=== PATIENT | female | born 1950 | race Asian ===

== ENCOUNTER 2017-01-03 07:11 | Day surgery (SDC) | payer OTHER ==
[~2017-01-03] VITALS: Ht 157.5 cm; Wt 90.0 kg
[2017-01-03] MEDS ORDERED: METO-429 PO (07:58)
[2017-01-03] MEDS ORDERED: CLON-379 PO (07:58)
[2017-01-03] MEDS ORDERED: CIPR500T4 PO (07:59)
[2017-01-03] MEDS ORDERED: PANT40TA3 PO (07:59)
[2017-01-03] MEDS ORDERED: SOD CHLORIDE 0.9% 1,000 ML IV SCH (08:00)
[2017-01-03] MEDS ORDERED: LORA-186 PO (08:00)
[2017-01-03] MEDS ORDERED: CEFAZOLIN 1 GM/50 ML (PMX) 50 ML IVPB ONE ×2 (08:00→09:45)
[2017-01-03] MEDS ORDERED: LIDOCAINE 2%/EPI 30 ML INJ ONE (08:24)
[2017-01-03] MEDS ORDERED: HEPARIN 1000 UNITS/ML 10 ML INJ ONE (08:24)
[2017-01-03] MEDS ORDERED: SOD CHLORIDE 0.9% 500 ML ONE ×2 (08:24→11:13)
[2017-01-03] MEDS ORDERED: POLYMYXIN/BACITRACIN 1L IRRIG IRR ONE (08:30)
[2017-01-03 08:41] VITALS: Ht 157.5 cm; Wt 90.0 kg
[2017-01-03 08:45] VITALS: BP 175/77; PULSE 97; RESP 16
[2017-01-03] MEDS ORDERED: FENTAnyl 50 MCG/ML VIAL ONE (09:45)
[2017-01-03] MEDS ORDERED: MIDAZOLAM 1 MG/ML 2 ML INJ ONE (09:46)
--- NOTE | 2017-01-03 10:59 | RADRPT ---
PROCEDURE: FLUOROSCOPIC AND ULTRASONOGRAPHIC-GUIDED PLACEMENT OF RIGHT CHEST PORT. CLINICAL INDICATION: History of left breast cancer. Venous access for chemotherapy. TECHNIQUE: INTRAPROCEDURE MEDICATIONS: PB antibiotic solution 40 cc applied topically. 1 gram Ancef intravenous ly, intra-op. IV Versed and Fentanyl per protocol. Informed consent was obtained. The procedure, risks, benefits, complications and alternatives were explained to the patient. Risks including bleeding, infection, and pneumothorax were explained. The patient understood and was willing to proceed. A procedural pause was performed. The patient's name , date of , and procedure to be performed were verified. The central line was inserted with al l elements of maximal sterile barrier technique. All of the following were used: head covering, faci al mask, sterile gown, sterile gloves, a large sterile sheet, hand hygiene, and 2% chlorhexidine fo r cutaneous antisepsis. The right neck and anterior/superior chest wall were prepped and draped in usual sterile fashion. Limited sonography of the right neck was then performed. Noted is a patent right internal jugular ve in. Following the local injection of 1% lidocaine, the right internal jugular vein was punctured under s onographic guidance with a 20-gauge needle through which a 0.018 inch floppy tip guidewire was advan nilda into the superior vena cava with fluoroscopic guidance. The tract was dilated to 5 Russian and the wire was then replaced with a 0.035 in Amplatz guidewire. Serial dilatation was then performed and a 7 Russian peel away sheath was introduced. A site just inferior to the clavicle in the superior anterior right chest wall was localized. One pe rcent lidocaine was used as local anesthesia. A transverse 2.5 cm incision was made utilizing a 15 b lade scalpel. Utilizing blunt dissection a subcutaneous pocket was created inferior to the incision. The cavity was flushed with approximately 40 cc of PB antibiotic solution. The catheter was tunneled underneath the skin from the newly created pocket to the puncture site in the neck. The central line catheter was pulled through the tract. The catheter was then advanced thr ough the sheath until the tip was positioned in the right atrium. The peel-away sheath was removed. The catheter was flushed and clamped. The 6.6 Russian catheter was then connected to the Angiodynamics power port. The port was then placed into the pocket. Prior to closing the instrument and sponge count was verified and was correct. The subcutaneous tissue was closed with 3-0 Vicryl interrupted suture. The skin at the site of the pock et and in the neck was closed with 4-0 Vicryl suture in a running subcuticular technique. The port w as flushed with 1500 units of heparin in 1.5 cc utilizing a Doty needle. The needle was removed. A dressing was applied. The patient tolerated procedure well. COMPARISON: None. FINDINGS: Ultrasound images were recorded and stored in the patient's medical record. Final radiographic images demonstrate the tip of the catheter in the upper right atrium. A total of 0.1 minutes of fluoroscopy time was used. 5 images of the chest were obtained with the Numerify. The ultrasound images demonstrate the needle entering the internal jugular vein. IMPRESSION: 1. Successful ultrasonographic and fluoroscopic guided placement of right chest power port. RPTAT: QQ .Daniel Cazares MD, Date Time Electronically viewed and signed by .Daniel Cazares MD, on 01/03/2017 10:58 .R/
[2017-01-03] MEDS ORDERED: HYDROCODONE/APAP (5/325) TAB PO PRN (11:00)
[2017-01-03 11:02] VITALS: BP 159/81; PULSE 94; RESP 18
[2017-01-03 11:07] VITALS: BP 163/79; PULSE 96; RESP 16
[2017-01-03 13:00] VITALS: BP 155/74; PULSE 97; RESP 16
--- NOTE | 2017-01-03 14:37 | RADRPT ---
PROCEDURE: Ultrasound guidance for placement of needle in right internal jugular vein. CLINICAL INDICATION: Venous access. TECHNIQUE: Prior to the procedure, informed consent was obtained. Risks including bleeding, infection, and pneu mothorax were explained to the patient. The patient understood and was willing to proceed. A procedu ral pause was performed. The patient's name, date of , and procedure to be performed were verif ied. The central line was inserted with all elements of maximal sterile barrier technique. All of th e following were used: head covering, facial mask, sterile gown, sterile gloves, a large sterile she et, hand hygiene, and 2% chlorhexidine for cutaneous antisepsis. The right neck and anterior/super ior chest wall was prepped and draped in usual sterile fashion. Limited sonography of the right neck was then performed. Noted is a patent right internal jugular ve in. Ultrasound images were recorded and stored in the patient's medical record. Following the local injection of Xylocaine, the right internal jugular vein was punctured under sono graphic guidance with a 20-gauge needle through which a 0.018 inch floppy tip guidewire was advanced into the superior vena cava. The patient tolerated the procedure well. The remainder of the proce dure was performed and dictated under separate cover. COMPARISON: None. FINDINGS: The ultrasound images demonstrate a patent right internal jugular vein. The subsequent images demon strate the needle entering the right internal jugular vein. IMPRESSION: 1. Ultrasound guidance for a needle placement in right internal jugular vein. RPTAT: QQ .Daniel Cazares MD, Date Time Electronically viewed and signed by .Daniel Cazares MD, on 01/03/2017 14:37 .R/
== END 2017-01-03 13:11 | disposition home or self-care (01) ==
LOC: SDS 07:11
PROVIDERS: ATTEND Internal Medicine Hematology & Oncology
DX: C50.912 Malignant neoplasm of unspecified site of left female breast (principal)
CPT/HCPCS: 36561; 76942; C1788; J0690; J1644; J2250; J3010; J7040

== ENCOUNTER 2017-04-02 11:21 | Inpatient (IN) | payer OTHER ==
[~2017-04-02] VITALS: Ht 157.5 cm; Wt 86.5 kg
[~2017-04-02 11:21] MED LIST: CIPR500T4 PO; CLON-379 PO; LORA-186 PO; METO-429 PO; PANT40TA3 PO
[2017-04-02 11:27] VITALS: Ht 157.5 cm; Wt 86.5 kg
[2017-04-02] MEDS ORDERED: ONDANSETRON 4 MG INJ IV STA (13:35)
[2017-04-02] MEDS ORDERED: SODIUM CHLORIDE 0.9% 1L BAG IV* STA (13:35)
[2017-04-02 14:11] LABS: ABNORMAL IP MESSAGE 1; BASOPHILS % 0.8 % (0.0-2.0); HEMATOCRIT 37.7 % (37.0-47.0); HEMOGLOBIN 12.4 g/dl (12.0-16.0); LYMPHOCYTES # 1.4 10^3/ul (0.8-2.9); MEAN CORPUSCULAR HEMOGLOBIN 27.8 pg (29.0-33.0); MEAN CORPUSCULAR HGB CONC 32.9 g/dl (32.0-37.0); MEAN CORPUSCULAR VOLUME 84.5 fl (82.0-101.0); MEAN PLATELET VOLUME 9.2 fl (7.4-10.4); MONOCYTE # 1.6 10^3/ul (0.3-0.9); MONOCYTES % 44.4 % (0.0-11.0); NEUTROPHIL # 0.5 10^3/ul (1.6-7.5); NUCLEATED RED BLOOD CELLS% 0.6 /100WBC (0.0-0.0); PLATELET COUNT 198 10^3/UL (140-415); RED BLOOD COUNT 4.46 10^6/ul (4.20-5.40); RED CELL DISTRIBUTION WIDTH 14.8 % (11.5-14.5); WHITE BLOOD COUNT 3.6 10^3/ul (4.8-10.8)
--- NOTE | 2017-04-02 14:13 | RADRPT ---
PROCEDURE: XR Chest. CLINICAL INDICATION: Sepsis. Shortness of breath. TECHNIQUE: XR CHEST AP PORTABLE COMPARISON: None available. FINDINGS: A right port-a-cath is present with the tip at the cavoatrial junction. The lungs are clear. No fo nay opacification is seen. No pneumothorax or pleural effusion is seen. Mild aortic atherosclerosi s is present. Otherwise, the cardiomediastinal silhouette is unremarkable. The osseous structures a re grossly unremarkable. IMPRESSION: 1. No evidence of acute cardiopulmonary disease. 2. Mild aortic atherosclerosis. RPTAT: JJ .Manjinder Sharif MD, Date Time Electronically viewed and signed by .Manjinder Sharif MD, on 04/02/2017 14:13 .A/
[2017-04-02 14:14] LABS: POSITIVE DIFF @See below
[2017-04-02 14:20] LABS: PROTIME 13.3 Sec (11.9-14.9)
[2017-04-02 14:21] LABS: PARTIAL THROMBOPLASTIN TIME 25.9 Sec (25.0-35.0)
[2017-04-02 14:24] LABS: ALANINE AMINOTRANSFERASE 40 IU/L (13-69); ALBUMIN 3.9 g/dl (3.3-4.9); ALBUMIN/GLOBULIN RATIO 1.08; ALKALINE PHOSPHATASE 57 IU/L (42-121); ANION GAP 14 (8-16); ASPARTATE AMINO TRANSFERASE 34 IU/L (15-46); BILIRUBIN,INDIRECT 0.6 mg/dl (0-1.1); BILIRUBIN,TOTAL 0.6 mg/dl (0.2-1.3); BLOOD UREA NITROGEN 25 mg/dl (7-20); CARBON DIOXIDE 32 mmol/L (21-31); CHLORIDE 93 mmol/L (97-110); CREATININE 0.97 mg/dl (0.44-1.00); GLUCOSE 132 mg/dl (70-220); SODIUM 136 mmol/L (135-144); TOTAL PROTEIN 7.5 g/dl (6.1-8.1)
[2017-04-02 14:39] LABS: TROPONIN-I < 0.012 ng/ml (0.00-0.12)
--- NOTE | 2017-04-02 15:34 | RADRPT ---
PROCEDURE: CT ABDOMEN AND PELVIS WITHOUT CONTRAST. CLINICAL INDICATION: Possible sepsis TECHNIQUE: CT scan of the abdomen and pelvis without contrast was performed on a multidetector hig h-resolution CT scanner. The patient was scanned without intravenous contrast. Coronal and sagittal reformatted images were obtained from the axial source images. Images were reviewed on a high-resol [employer] PACS workstation. The total exam CTDI equals 21.5 mGy and the total exam DLP equals 1110 mGy-c m. One or more of the following dose reduction techniques were used: Automated exposure control. Adjustment of the mA and/or kV according to patient size. Use of iterative reconstruction technique. DICOM images are available COMPARISON: None FINDINGS: CT abdomen: The lung bases are clear. The heart size is within limits. There is no significant pericardial effus ion. Hepatic morphology is within normal limits. There is fatty infiltration of the liver. Gallbladder is unremarkable. No evidence of intrahepatic or extrahepatic biliary dilatation. The spleen is unremarkable. There may be fat stranding involving the head of the pancreas. Both adrenal glands are within normal limits. Both kidneys are in normal anatomic position. No evidence of obstruction or hydronephrosis. No gross renal/ureteric calculi. The visualized GI tract demonstrates thickening of the yung of the duodenum. There is mild fat stra nding surrounding the duodenum and possibly the head of the pancreas. The unenhanced aorta is unremarkable. No significant retroperitoneal lymphadenopathy. CT pelvis: The bladder is within limits. The rectosigmoid colon is within normal limits. No significant free fl uid. No significant pelvic lymphadenopathy. The visualized osseous structures demonstrate multilevel degenerative disease of the spine. IMPRESSION: 1. Thickening of the yung of the duodenum with mild adjacent fat stranding, concerning for duodenit is. Difficult to determine if this is isolated or adjacent inflammation secondary to possible pancre atitis. 2. There may be some fat stranding and inflammation involving the head of the pancreas. Recommend co rrelation with amylase and lipase levels to exclude the possibility of mild pancreatitis. 3. No evidence of free fluid or free air. No gross focal fluid collections. 4. Fatty liver. RPTAT: AAPP Yoly Jorge Physician Date Time Electronically viewed and signed by Yoly Jorge Physician on 04/02/2017 15:34 KAILA/
[2017-04-02] MEDS ORDERED: CEFEPIME 2GM/50 ML (PMX) 50 ML IVPB ONE (16:30)
[2017-04-02] MEDS: SOD CHLORIDE 0.9% 1,000 ML IV SCH (19:16)
[2017-04-02] MEDS: ONDANSETRON 4 MG INJ IV PRN (19:17)
[2017-04-02] MEDS ORDERED: ACETAMINOPHEN 325 MG TAB PO PRN (19:30)
--- NOTE | 2017-04-02 21:12 | ERD ---
ER Documentation Chief Complaint Chief Complaint Pt presents with AP, vomiting/diarrhes x weeks, breast CA, chemo 03/27/17 HPI This is a 66-year-old female history of breast cancer with left chemotherapy approximately 7 days ago who presents with multiple complaints including epigastric abdominal pain that is moderate with associated nonbloody nonbilious emesis and loose watery stools. She denies any chest pain, fevers or chills or pleuritic pain. No headache. ROS All systems reviewed and are negative except as per history of present illness. Medications Home Meds Reported Medications Loratadine* (Claritin*) 10 Mg Tablet, 10 MG PO DAILY, TAB 01/03/17 Pantoprazole* (Protonix*) 40 Mg Tablet.dr, 40 MG PO DAILY, TAB 01/03/17 Clonidine Hcl* (Clonidine Hcl*) 0.1 Mg Tab, 0.1 MG PO Q6 Y for ELEVATED BLOOD PRESSURE, TAB 01/03/17 Metoprolol Tartrate* (Lopressor*) 50 Mg Tab, 50 MG PO BID, #60 TAB 01/03/17 Discontinued Reported Medications Ciprofloxacin Hcl* (Ciprofloxacin Hcl*) 500 Mg Tablet, 500 MG PO BID, #14 TAB 01/03/17 Allergies Allergies: Coded Allergies: No Known Allergy (Unverified , 04/02/17) PMhx/Soc History of Surgery: Yes (tonsilectomy- 1984, D&C) Anesthesia Reaction: No Hx Neurological Disorder: No Hx Respiratory Disorders: No Hx Cardiac Disorders: No Hx Psychiatric Problems: No Hx Miscellaneous Medical Probl: Yes (left breast cancer) Hx Alcohol Use: No Hx Substance Use: No Hx Tobacco Use: No Smoking Status: Never smoker FmHx Family History: No diabetes Physical Exam Vitals Vital Signs Date Time Temp Pulse Resp B/P Pulse Ox O2 Delivery O2 Flow Rate FiO2 04/02/17 17:31 91 18 153/79 99 Room Air 04/02/17 14:17 Nasal Cannula 04/02/17 11:27 98.8 107 18 128/69 99 Physical Exam General: Well developed, well nourished, no acute distress Head: Normocephalic, atraumatic. Eyes: Pupils equally reactive, EOM intact ENT: Moist mucous membranes Neck: Supple, no lymphadenopathy Respiratory: Lungs clear bilaterally, no distress Cardiovascular: RRR, no murmurs, rubs, or gallops Abdominal: Soft, mild epigastric tenderness without rebound or guarding : Deferred MSK: No edema, no unilateral swelling, 5/5 strength Neurologic: Alert and oriented, moving all extremities, normal speech, no focal weakness, no cerebellar signs Skin: No rash Psych: Normal mood Result Diagram: 04/02/17 1400 04/02/17 1400 Results 24 hrs Laboratory Tests Test 04/02/17 14:00 04/02/17 16:09 04/02/17 17:54 White Blood Count 3.610^3/ul Red Blood Count 4.4610^6/ul Hemoglobin 12.4g/dl Hematocrit 37.7% Mean Corpuscular Volume 84.5fl Mean Corpuscular Hemoglobin 27.8pg Mean Corpuscular Hemoglobin Concent 32.9g/dl Red Cell Distribution Width 14.8% Platelet Count 09793^3/UL Mean Platelet Volume 9.2fl Neutrophils % 14.0% Lymphocytes % 40.0% Monocytes % 44.4% Eosinophils % 0.0% Basophils % 0.8% Nucleated Red Blood Cells % 0.6/100WBC Neutrophils # 0.510^3/ul Lymphocytes # 1.410^3/ul Monocytes # 1.610^3/ul Eosinophils # 0.010^3/ul Basophils # 0.010^3/ul Nucleated Red Blood Cells # 0.010^3/ul Prothrombin Time 13.3Sec Prothrombin Time Ratio 1.0 INR International Normalized Ratio 1.00 Activated Partial Thromboplast Time 25.9Sec Sodium Level 136mmol/L Potassium Level 3.0mmol/L Chloride Level 93mmol/L Carbon Dioxide Level 32mmol/L Anion Gap 14 Blood Urea Nitrogen 25mg/dl Creatinine 0.97mg/dl Glucose Level 132mg/dl Lactic Acid Level 2.2mmol/L 1.2mmol/L 1.0mmol/L Calcium Level 9.0mg/dl Total Bilirubin 0.6mg/dl Direct Bilirubin 0.00mg/dl Indirect Bilirubin 0.6mg/dl Aspartate Amino Transf (AST/SGOT) 34IU/L Alanine Aminotransferase (ALT/SGPT) 40IU/L Alkaline Phosphatase 57IU/L Troponin I < 0.012ng/ml Total Protein 7.5g/dl Albumin 3.9g/dl Globulin 3.60g/dl Albumin/Globulin Ratio 1.08 Lipase 177U/L Current Medications Medications (Trade) Dose Ordered Sig/Coleman Route PRN Reason Start Time Stop Time Status Last Admin Dose Admin Sodium Chloride (NS) 2,680 ml BOLUS OVER 2 HOURS STAT IV* 04/02/17 13:35 04/02/17 13:36 DC 04/02/17 13:59 Ondansetron HCl 4 mg 4 mg ONCE STAT IV 04/02/17 13:35 04/02/17 13:36 DC 04/02/17 13:59 Cefepime HCl (Maxipime 2gm/50 ml (Pmx)) 50 ml @ 100 mls/hr ONCE ONCE IVPB 04/02/17 16:30 04/02/17 16:59 DC 04/02/17 16:46 Ondansetron HCl (Zofran Inj) 4 mg BRIDGE ORDER PRN IV NAUSEA AND/OR VOMITING 04/02/17 19:30 04/03/17 19:29 04/02/17 19:17 Acetaminophen 650 mg 650 mg ER BRIDGE PRN PO MILD PAIN/FEVER 04/02/17 19:30 04/03/17 19:29 Sodium Chloride (NS) 1,000 ml @ 100 mls/hr Q10H IV 04/02/17 19:30 04/02/17 19:16 Morphine Sulfate (morphine) 2 mg Q4H PRN IV pain 7-10 04/02/17 19:30 Ondansetron HCl (Zofran Inj) 4 mg Q6H PRN IV NAUSEA AND/OR VOMITING 04/02/17 19:30 Procedures/MDM EKG, MONITORS, & DIAGNOSTIC IMAGING: EKG: I reviewed and interpreted a 12-lead EKG. Rhythm: Normal sinus rhythm Ectopy: None Intervals: No abnormalities ST segments: No elevations or depressions T waves: No contiguous inversions Chest x-ray: I reviewed and interpreted a 1 view of the chest Mediastinum: No enlargement Cardiac silhouette: No cardiomegaly Airspace: Clear lung ballard bilaterally without evidence of pneumothorax Bones: No evidence of fracture CT abdomen and pelvis: IMPRESSION: 1. Thickening of the yung of the duodenum with mild adjacent fat stranding, concerning for duodenitis. Difficult to determine if this is isolated or adjacent inflammation secondary to possible pancreatitis. 2. There may be some fat stranding and inflammation involving the head of the pancreas. Recommend correlation with amylase and lipase levels to exclude the possibility of mild pancreatitis. 3. No evidence of free fluid or free air. No gross focal fluid collections. 4. Fatty liver. RPTAT: AAPP LAB INTERPRETATION: Slight leukopenia, no evidence of lipase elevation. Lactic acid slightly elevated but improving MEDICAL DECISION MAKING: The patient is status post chemotherapy presents with abdominal pain nausea vomiting and diarrhea. Broad differential, possibly related to chemotherapy, need to rule out neutropenia. The patient does have breast cancer, consider possible metastatic disease that the patient states that status post mastectomy the symptoms are improving. ER COURSE: The patient's laboratory testing shows slight leukopenia. The patient has tachycardia with Sirs criteria met. The patient has a CT showing evidence of duodenitis. Cefepime provided. The patient was given IV fluids in the form of 30 cc/kg. The patient did have initial lactic elevation consistent with severe sepsis however the patient's lactic cleared appropriately. The patient has no evidence of hypotension or shock. I kept the patient and/or family informed of laboratory and diagnostic imaging results throughout the emergency room course. DISPOSITION PLAN: Medical surgical admission CONSULTATION: Accepting care team and consultations: I discussed the current laboratory data, diagnostic imaging and emergency care provided. Admitting team: Dr. Palumbo Admitting team indication: Insurance directed Sepsis Documentation: Patient's infectious symptoms have not stabilized and the patient is at risk of rapid decompensation. The patient will be admitted for careful hydration, antibiotic therapy, and infectious source control. SEVERE SEPSIS CRITERIA: Infectious source: Duodenitis End organ damage indicated by: [Lactate > 2.0 mmol/L SEPSIS MANAGEMENT Time of recognition of severe sepsis/septic shock: Upon arrival 3 HOUR BUNDLE Blood cultures x 2 before broad-spectrum antibiotics: Yes 30 ml/kg NS bolus Completed Initial lactate 2.2 Repeat lactate less than 2 SEPTIC SHOCK ASSESSMENT: No lactic acid > 4.0 No persistent hypotension (SBP < 90 or 40 mmHg drop, MAP < 65) despite 30 mL/kg IV fluid bolus VOLUME REASSESSMENT FOR SEPTIC SHOCK: The patient does not make criteria for septic shock PERSISTENT HYPOTENSION TREATMENT: Comfort care No Central line Not Required Vasopressor started Not required I considered further perfusion assessment with CVP measurement, SCVO2, bedside ultrasound volume assessment, passive leg raise, trial of further fluid bolus. And proceeded with 30 ml/kg fluid bolus of NSS, broad spectrum antbiotics, and admission. CRITICAL CARE Critical care time 35 minutes Emergent fluid management while maintaining close respiratory support. Provision of immediate and broad-spectrum antibiotic therapy. Simultaneous assessment for possible sources in order to direct targeted therapy. Consideration for invasive and chemical support to prevent cardiopulmonary collapse. Critical care time is independent of procedures performed. Departure Diagnosis: Primary Impression: Vomiting and diarrhea Additional Impressions: Duodenitis History of breast cancer Severe sepsis Condition: Stable DEVON RODRIGUEZ MD Apr 02, 2017 21:12
[2017-04-02 22:45] VITALS: BP 131/71; PULSE 91; RESP 18
[2017-04-02] MEDS ORDERED: hydrALAzine 20 MG INJ IV PRN (23:30)
[2017-04-02] MEDS ORDERED: POTASSIUM CHLORIDE 30 MEQ in DEXTROSE 5% 250 ML IVPB ONE (23:59)
[2017-04-03] MEDS: morphine 2 MG INJ IV PRN ×3 (01:08→12:00)
[2017-04-03] MEDS: ONDANSETRON 4 MG INJ IV PRN ×3 (01:08→19:04)
[2017-04-03 02:17] VITALS: BP 123/61; RESP 18
[2017-04-03] MEDS: SOD CHLORIDE 0.9% 1,000 ML IV SCH ×2 (05:08→16:21)
[2017-04-03 05:45] LABS: ABNORMAL IP MESSAGE 1; HEMATOCRIT 30.1 % (37.0-47.0); HEMOGLOBIN 10.1 g/dl (12.0-16.0); MEAN CORPUSCULAR HEMOGLOBIN 28.1 pg (29.0-33.0); MEAN CORPUSCULAR HGB CONC 33.6 g/dl (32.0-37.0); MEAN CORPUSCULAR VOLUME 83.8 fl (82.0-101.0); MEAN PLATELET VOLUME 9.4 fl (7.4-10.4); PLATELET COUNT 173 10^3/UL (140-415); RED BLOOD COUNT 3.59 10^6/ul (4.20-5.40); RED CELL DISTRIBUTION WIDTH 15.1 % (11.5-14.5); WHITE BLOOD COUNT 3.6 10^3/ul (4.8-10.8)
[2017-04-03 05:47] LABS: POSITIVE DIFF @See below
[2017-04-03 06:11] LABS: ALBUMIN/GLOBULIN RATIO 0.96; BILIRUBIN,INDIRECT 0.3 mg/dl (0-1.1); BILIRUBIN,TOTAL 0.3 mg/dl (0.2-1.3); CALCIUM 8.1 mg/dl (8.4-10.2); CREATININE 0.8 mg/dl (0.44-1.00); MAGNESIUM 1.7 mg/dl (1.7-2.5); PHOSPHORUS 2.9 mg/dl (2.5-4.9); POTASSIUM 3.2 mmol/L (3.5-5.1); TOTAL PROTEIN 6.1 g/dl (6.1-8.1)
[2017-04-03 07:58] LABS: ANISOCYTOSIS 1+ (0-0); BASOPHILS % (M) 3 % (0-2); GIANT THROMBO% (M) 1 % (0-0); METAMYELOCYTES %M 3 % (0-0); MICROCYTOSIS 1+ (0-0); MONOCYTES % (M) 27 % (0-11); MYELOCYTES % (M) 3 % (0-0); PLATELET ESTIMATE NORMAL; POLYCHROMASIA 3+ (0-0); REACTIVE LYMPHOCYTES% (M) 10 % (0-0)
--- NOTE | 2017-04-03 08:04 | HP ---
Date/Time of Note Date/Time of Note DATE: 04/03/17 TIME: 07:58 Assessment/Plan VTE Prophylaxis VTE Prophylaxis Intervention: SCD's Lines/Catheters IV Catheter Type (from Nrs): Saline Lock Assessment/Plan Assessment/Plan 1. Abdominal pain, with NBNB vomiting and watery diarrhea, likely secondary to duodenitis: Much improved -Keep n.p.o. for now -PPI -Pain management -Do not believe antibiotic is warranted at this time -ID consult 2. Left breast carcinoma, diagnosed 4 months ago: On chemo -Patient awaiting surgical intervention -She will follow-up with her oncologist upon discharge 3. History of hypertension -Continue antihypertensives adjustment as needed 4. Hypokalemia -Replete HPI/ROS Admit Date/Time Admit Date/Time Apr 02, 2017 at 19:05 Hx of Present Illness This is a 66-year-old female with a history of hypertension and left breast carcinoma on chemo who presented to the ER complaining of abdominal pain, nausea and vomiting. She said that she was diagnosed with left breast cancer 4 months ago. She was started on chemo last month, last chemo a week ago. She said that ever since she started the chemo, she has been having diffuse abdominal pain, nausea, nonbloody nonbilious emesis as well as watery yellowish nonbloody diarrhea. Denied chest pain, shortness of breath, fever/chills, headache. Patient is currently awaiting a surgical intervention on the left breast. When she presented to the ER, initial heart rate was 107 otherwise rest of vitals are stable. Labs shows a WBC of 3.6, potassium of 3, initial lactate 2.2 otherwise basic labs are within acceptable range. CT abdomen/pelvis shows duodenitis and possible pancreatitis. Lipase is within normal limits. PMH/Family/Social Social History Smoking Status: Never smoker Exam/Review of Systems Vital Signs Vitals Vital Signs Date Time Temp Pulse Resp B/P Pulse Ox O2 Delivery O2 Flow Rate FiO2 04/03/17 02:17 98.4 72 18 123/61 94 04/02/17 22:45 Room Air Intake and Output 04/02/17 04/02/17 04/03/17 15:00 23:00 07:00 Intake Total 250 ml Output Total 1 ml Balance 249 ml Exam Constitutional: alert, oriented, well developed Head: atraumatic, normocephalic Eyes: EOMI, PERRL Respiratory: clear to auscultation, normal air movement Cardiovascular: nl pulses, regular rate and rhythm Gastrointestinal: other (Mild tenderness to deep palpation diffusely with no guarding, no rigidity), soft Extremities: normal pulses Labs Result Diagram: 04/03/1743804/03/17438 Medications Medications Current Medications Sodium Chloride (NS) 1,000 ml @ 100 mls/hr Q10H IV Last administered on 05:08; Admin Dose 100 MLS/HR; Start 04/02/17 at 19:30 Morphine Sulfate (morphine) 2 mg Q4H PRN IV pain 7-10 Last administered on 05:07; Admin Dose 2 MG; Start 04/02/17 at 19:30 Ondansetron HCl (Zofran Inj) 4 mg Q6H PRN IV NAUSEA AND/OR VOMITING Last administered on 04/03/17 01:08; Admin Dose 4 MG; Start 04/02/17 at 19:30 Hydralazine HCl (Apresoline) 10 mg Q4H PRN IV SBP > 160; Start 04/02/17 at 23: 30 JAY CHEEMA MD Apr 03, 2017 08:04
[2017-04-03 08:09] VITALS: BP 145/67; RESP 18
[2017-04-03] MEDS ORDERED: POTASSIUM CHLORIDE 20 MEQ in DEXTROSE 5% 100 ML IVPB ONE (10:00)
--- NOTE | 2017-04-03 10:56 | PN ---
Date/Time of Note Date/Time of Note DATE: 04/03/17 TIME: 10:56 Assessment/Plan VTE Prophylaxis VTE Prophylaxis Intervention: SCD's Lines/Catheters IV Catheter Type (from Nrsg): Saline Lock Assessment/Plan Assessment/Plan 1. Epigastric pain secondary to duodenitis and pancreatitis- improving - CT scan abdomen shows "thickening of the yung of the duodenum with mild adjacent fat stranding, concerning for duodenitis. Difficult to determine if this is isolated or adjacent inflammation secondary to possible pancreatitis" - will try clear liquids and advance as tolerated - Pain management - ?secondary to chemotherapy 2. Left breast carcinoma, diagnosed 4 months ago: On chemo - Patient awaiting surgical intervention - She will follow-up with her oncologist upon discharge 3. History of hypertension -Continue antihypertensives adjustment as needed 4. Hypokalemia - 3.2, replaced and continue to monitor 5. Disposition - Advance diet as tolerated - If continues to improve and tolerating regular diet will d/c in next 24-48 hours Subjective 24 Hr Interval Summary Free Text/Dictation Patient still experiencing epigastric discomfort but states improved since admission. Tylenol helping control discomfort at this time. Would like to try eating today . Exam/Review of Systems Vital Signs Vitals Vital Signs Date Time Temp Pulse Resp B/P Pulse Ox O2 Delivery O2 Flow Rate FiO2 04/03/17 08:09 98.0 80 18 145/67 97 04/02/17 22:45 Room Air Intake and Output 04/02/17 04/02/17 04/03/17 15:00 23:00 07:00 Intake Total 250 ml Output Total 1 ml Balance 249 ml Exam Constitutional: alert, oriented, well developed Psych: nl mood/affect Head: atraumatic, normocephalic Eyes: EOMI, PERRL ENMT: mucosa pink and moist Neck: non-tender, supple Respiratory: clear to auscultation, No crackles/rales, No labored breathing, No wheezing Cardiovascular: regular rate and rhythm, No edema, No murmurs/extra sounds Gastrointestinal: soft, tender (epigastric area), No distended, No rebound or guarding Musculoskeletal: nl extremities to inspection Extremities: normal pulses 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, nl mental status, nl speech Skin: nl turgor Lymph: nl lymph nodes Results Result Diagram: 04/03/1743804/03/17438 Results 24 hrs Laboratory Tests Test 04/02/17 14:00 04/02/17 16:09 04/02/17 17:54 04/03/17 04:39 White Blood Count 3.6 L 3.6 L Red Blood Count 4.46 3.59 L Hemoglobin 12.4 10.1 L Hematocrit 37.7 30.1 #L Mean Corpuscular Volume 84.5 83.8 Mean Corpuscular Hemoglobin 27.8 L 28.1 L Mean Corpuscular Hemoglobin Concent 32.9 33.6 Red Cell Distribution Width 14.8 H 15.1 H Platelet Count 198 173 Mean Platelet Volume 9.2 9.4 Neutrophils % 14.0 L Lymphocytes % 40.0 Monocytes % 44.4 H Eosinophils % 0.0 Basophils % 0.8 Nucleated Red Blood Cells % 0.6 H 0.0 Neutrophils # 0.5 L Lymphocytes # 1.4 Monocytes # 1.6 H Eosinophils # 0.0 Basophils # 0.0 Nucleated Red Blood Cells # 0.0 Prothrombin Time 13.3 Prothrombin Time Ratio 1.0 INR International Normalized Ratio 1.00 Activated Partial Thromboplast Time 25.9 Sodium Level 136 138 Potassium Level 3.0 L 3.2 L Chloride Level 93 L 100 Carbon Dioxide Level 32 H 31 Anion Gap 14 10 Blood Urea Nitrogen 25 H 18 Creatinine 0.97 0.80 Glucose Level 132 125 Lactic Acid Level 2.2 *H 1.2 1.0 Calcium Level 9.0 8.1 L Total Bilirubin 0.6 0.3 Direct Bilirubin 0.00 0.00 Indirect Bilirubin 0.6 0.3 Aspartate Amino Transf (AST/SGOT) 34 28 Alanine Aminotransferase (ALT/SGPT) 40 39 Alkaline Phosphatase 57 41 L Troponin I < 0.012 Total Protein 7.5 6.1 # Albumin 3.9 3.0 L Globulin 3.60 H 3.10 Albumin/Globulin Ratio 1.08 0.96 Lipase 177 Segmented Neutrophils % (Manual) 13 L Band Neutrophils % (Manual) 4 Lymphocytes % (Manual) 36 Reactive Lymphocytes % (Manual) 10 H Monocytes % (Manual) 27 H Basophils % (Manual) 3 H Metamyelocytes % (manual) 3 H Myelocytes % (Manual) 3 H Neutrophils # (Manual) 0.5 L Band Neutrophils # 0.1 Absolute Lymphocytes (Manual) 1.2 Reactive Lymphocytes # 0.3 H Absolute Monocytes (Manual) 0.9 Basophils # (Manual) 0.1 H Metamyelocytes # 0.1 H Myelocytes # 0.1 H Platelet Estimate NORMAL Giant Platelets 1 H Polychromasia 3+ Anisocytosis 1+ Microcytosis 1+ Phosphorus Level 2.9 Magnesium Level 1.7 Medications Medications Current Medications Sodium Chloride (NS) 1,000 ml @ 100 mls/hr Q10H IV Last administered on 05:08; Admin Dose 100 MLS/HR; Start 04/02/17 at 19:30 Morphine Sulfate (morphine) 2 mg Q4H PRN IV pain 7-10 Last administered on 05:07; Admin Dose 2 MG; Start 04/02/17 at 19:30 Ondansetron HCl (Zofran Inj) 4 mg Q6H PRN IV NAUSEA AND/OR VOMITING Last administered on 04/03/17 01:08; Admin Dose 4 MG; Start 04/02/17 at 19:30 Hydralazine HCl 10 mg 10 mg Q4H PRN IV SBP > 160; Start 04/02/17 at 23:30 Potassium Chloride/Dextrose (KCl/D5W) 110 ml @ 55 mls/hr ONCE ONCE IVPB ; Start 04/03/17 at 10:00; Stop 04/03/17 at 11:59 DUNIA VINCENT MD Apr 03, 2017 10:56
[2017-04-03] MEDS: FAMOTIDINE 20 MG INJ IV SCH ×2 (11:50→18:25)
[2017-04-03 13:58] LABS: ADD UMIC NO; UR ASCORBIC ACID NEGATIVE (NEGATIVE); UR BILIRUBIN (Dip) NEGATIVE (NEGATIVE); UR BLOOD (Dip) NEGATIVE (NEGATIVE); UR CLARITY CLEAR (CLEAR); UR COLOR YELLOW (YELLOW); UR GLUCOSE (Dip) NEGATIVE (NEGATIVE); UR KETONES (Dip) 1+ mg/dL (NEGATIVE); UR LEUKOCYTE ESTERASE (Dip) NEGATIVE Leu/ul (NEGATIVE); UR NITRITE (Dip) NEGATIVE (NEGATIVE); UR SPECIFIC GRAVITY (Dip) 1.016 (1.003-1.030); UR TOTAL PROTEIN (Dip) NEGATIVE (NEGATIVE); UR UROBILINOGEN (Dip) NEGATIVE (NEGATIVE)
[2017-04-03] MEDS ORDERED: morphine LIQ (10 MG/5 ML) CUP PO PRN (15:00)
[2017-04-03 20:15] VITALS: BP 150/88; RESP 20
[2017-04-03] MEDS: traZODone 50 MG TAB PO SCH (20:29)
[2017-04-03] MEDS: METOPROLOL 50 MG TAB PO SCH (20:29)
[2017-04-04] MEDS: SOD CHLORIDE 0.9% 1,000 ML IV SCH ×3 (01:33→21:44)
[2017-04-04 02:13] VITALS: BP 151/70; RESP 18
[2017-04-04] MEDS: FAMOTIDINE 20 MG INJ IV SCH ×2 (05:56→18:01)
[2017-04-04 05:58] LABS: BASOPHILS % 0.7 % (0.0-2.0); HEMATOCRIT 30.7 % (37.0-47.0); HEMOGLOBIN 10.1 g/dl (12.0-16.0); LYMPHOCYTES # 1.5 10^3/ul (0.8-2.9); LYMPHOCYTES % 38.4 % (15.0-51.0); MEAN CORPUSCULAR HEMOGLOBIN 27.7 pg (29.0-33.0); MEAN CORPUSCULAR HGB CONC 32.9 g/dl (32.0-37.0); MEAN CORPUSCULAR VOLUME 84.1 fl (82.0-101.0); MEAN PLATELET VOLUME 9.2 fl (7.4-10.4); MONOCYTE # 1.1 10^3/ul (0.3-0.9); MONOCYTES % 27.2 % (0.0-11.0); NEUTROPHIL # 1.2 10^3/ul (1.6-7.5); NEUTROPHILS % 28.7 % (39.0-77.0); NUCLEATED RED BLOOD CELLS% 0.5 /100WBC (0.0-0.0); PLATELET COUNT 162 10^3/UL (140-415); RED BLOOD COUNT 3.65 10^6/ul (4.20-5.40); RED CELL DISTRIBUTION WIDTH 14.8 % (11.5-14.5)
[2017-04-04 07:12] LABS: ALBUMIN 2.8 g/dl (3.3-4.9); CALCIUM 8.2 mg/dl (8.4-10.2); CREATININE 0.77 mg/dl (0.44-1.00); MAGNESIUM 1.7 mg/dl (1.7-2.5); PHOSPHORUS 2.5 mg/dl (2.5-4.9)
[2017-04-04 07:49] VITALS: BP 158/73; RESP 18
[2017-04-04] MEDS: METOPROLOL 50 MG TAB PO SCH ×2 (08:27→20:28)
[2017-04-04 14:00] VITALS: BP 126/71; RESP 18
[2017-04-04] MEDS: ONDANSETRON 4 MG INJ IV PRN (14:57)
[2017-04-04] MEDS ORDERED: POTASSIUM CHLORIDE (SR) 20 MEQ TAB PO STA (15:06)
--- NOTE | 2017-04-04 15:17 | PN ---
Date/Time of Note Date/Time of Note DATE: 04/04/17 TIME: 15:13 Assessment/Plan VTE Prophylaxis VTE Prophylaxis Intervention: SCD's Lines/Catheters IV Catheter Type (from Nrs): Peripheral IV Assessment/Plan Chief Complaint/Hosp Course S: patient still patient still has some nausea symptoms. Unable to tolerate liquid diet. 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 Epigastric pain secondary to duodenitis and pancreatitis- improving . CT scan abdomen shows "thickening of the yung of the duodenum with mild adjacent fat stranding, concerning for duodenitis. Difficult to determine if this is isolated or adjacent inflammation secondary to possible pancreatitis -Given continue nausea symptoms, which are likely secondary to patient's recent chemotherapy, will add Tigan as needed and increase the dose of Zofran -Will start soft diet today. -Continue pain management 2. Left breast carcinoma, diagnosed 4 months ago: On chemo. Patient awaiting surgical intervention - She will follow-up with her oncologist upon discharge 3. History of hypertension - high nL range. -Continue antihypertensives adjustment as needed 4. Hypokalemia - still present - replete again today 5. Disposition - Advance diet as tolerated - If continues to improve and tolerating regular diet will likely d/c in next 24 hours Problems: Exam/Review of Systems Vital Signs Vitals Vital Signs Date Time Temp Pulse Resp B/P Pulse Ox O2 Delivery O2 Flow Rate FiO2 04/04/17 07:49 97.6 73 18 158/73 98 04/02/17 22:45 Room Air Intake and Output 04/03/17 04/03/17 04/04/17 15:00 23:00 07:00 Intake Total 110 ml 1750 ml 1200 ml Balance 110 ml 1750 ml 1200 ml Results Result Diagram: 04/04/17 0520 04/04/17 0519 Results 24 hrs Laboratory Tests Test 04/04/17 05:19 04/04/17 05:20 Sodium Level 140 Potassium Level 3.0 L Chloride Level 103 Carbon Dioxide Level 30 Anion Gap 10 Blood Urea Nitrogen 9 # Creatinine 0.77 Glucose Level 103 Calcium Level 8.2 L Phosphorus Level 2.5 Magnesium Level 1.7 Albumin 2.8 L White Blood Count 4.0 L Red Blood Count 3.65 L Hemoglobin 10.1 L Hematocrit 30.7 L Mean Corpuscular Volume 84.1 Mean Corpuscular Hemoglobin 27.7 L Mean Corpuscular Hemoglobin Concent 32.9 Red Cell Distribution Width 14.8 H Platelet Count 162 Mean Platelet Volume 9.2 Neutrophils % 28.7 L Lymphocytes % 38.4 Monocytes % 27.2 H Eosinophils % 0.0 Basophils % 0.7 Nucleated Red Blood Cells % 0.5 H Neutrophils # 1.2 L Lymphocytes # 1.5 Monocytes # 1.1 H Eosinophils # 0.0 Basophils # 0.0 Nucleated Red Blood Cells # 0.0 Medications Medications Current Medications Sodium Chloride (NS) 1,000 ml @ 100 mls/hr Q10H IV Last administered on 08:27; Admin Dose 100 MLS/HR; Start 04/02/17 at 19:30 Hydralazine HCl (Apresoline) 10 mg Q4H PRN IV SBP > 160; Start 04/02/17 at 23: 30 Metoprolol Tartrate (Lopressor) 50 mg BID PO Last administered on 04/04/17 08 :27; Admin Dose 50 MG; Start 04/03/17 at 21:00 Trazodone HCl (Desyrel) 50 mg HS PO Last administered on 04/03/17 20:29; Admin Dose 50 MG; Start 04/03/17 at 21:00 Morphine Sulfate (morphine) 6 mg Q4H PRN PO PAIN 7-10; Start 04/03/17 at 15:00 Trimethobenzamide HCl (Tigan) 200 mg Q6H PRN IM NAUSEA AND/OR VOMITING; Start 04/04/17 at 15:30 Potassium Chloride 40 meq 40 meq ONCE ONCE PO ; Start 04/04/17 at 19:10; Stop 04/04/17 at 19:11 Ondansetron HCl/ Sodium Chloride (Zofran Inj/NS) 54 ml @ 216 mls/hr Q6H PRN IV NAUSEA AND/OR VOMITING; Start 04/04/17 at 15:30 MARLIN SANTIAGO Apr 04, 2017 15:17
[2017-04-04] MEDS ORDERED: TRIMETHOBENZAMIDE 100 MG/ML VIAL IM PRN (15:30)
[2017-04-04] MEDS ORDERED: ONDANSETRON INJ 8 MG in SOD CHLORIDE 0.9% 50 ML IV PRN (15:30)
[2017-04-04] MEDS ORDERED: POTASSIUM CHLORIDE (SR) 20 MEQ TAB PO ONE (19:10)
[2017-04-04] MEDS ORDERED: ONDANSETRON 4 MG INJ IV PRN (19:30)
[2017-04-04 20:18] VITALS: BP 123/76; RESP 20
[2017-04-04] MEDS: traZODone 50 MG TAB PO SCH (20:28)
[2017-04-05 02:18] VITALS: BP 119/75; RESP 19
[2017-04-05 05:15] LABS: BASOPHILS % 0.4 % (0.0-2.0); HEMATOCRIT 31.4 % (37.0-47.0); HEMOGLOBIN 10.5 g/dl (12.0-16.0); LYMPHOCYTES # 1.8 10^3/ul (0.8-2.9); LYMPHOCYTES % 33.9 % (15.0-51.0); MEAN CORPUSCULAR HEMOGLOBIN 28.1 pg (29.0-33.0); MEAN CORPUSCULAR HGB CONC 33.4 g/dl (32.0-37.0); MEAN PLATELET VOLUME 9.1 fl (7.4-10.4); MONOCYTES % 18.7 % (0.0-11.0); NEUTROPHIL # 2.3 10^3/ul (1.6-7.5); NEUTROPHILS % 44.3 % (39.0-77.0); PLATELET COUNT 163 10^3/UL (140-415); RED BLOOD COUNT 3.74 10^6/ul (4.20-5.40); RED CELL DISTRIBUTION WIDTH 14.9 % (11.5-14.5); WHITE BLOOD COUNT 5.2 10^3/ul (4.8-10.8)
[2017-04-05 05:33] LABS: ALBUMIN 2.9 g/dl (3.3-4.9); CALCIUM 8.2 mg/dl (8.4-10.2); CREATININE 0.74 mg/dl (0.44-1.00); MAGNESIUM 1.4 mg/dl (1.7-2.5); PHOSPHORUS 2.9 mg/dl (2.5-4.9)
[2017-04-05 05:38] LABS: POTASSIUM 2.9 mmol/L (3.5-5.1)
[2017-04-05] MEDS ORDERED: POTASSIUM CHLORIDE 30 MEQ in SOD CHLORIDE 0.9% 150 ML IVPB ONE ×2 (06:00→10:00)
[2017-04-05] MEDS: FAMOTIDINE 20 MG INJ IV SCH (06:03)
[2017-04-05 07:50] VITALS: BP 128/60; RESP 18
[2017-04-05] MEDS: METOPROLOL 50 MG TAB PO SCH (08:58)
[2017-04-05] MEDS: SOD CHLORIDE 0.9% 1,000 ML IV SCH ×2 (11:44→17:30)
--- NOTE | 2017-04-05 14:10 | PDOCDIS ---
Discharge Instructions CONDITION Patient Condition: Stable HOME CARE INSTRUCTIONS: Diet Instructions: Regular ACTIVITY: Activity Restrictions: Slowly Increase Activity Rest between Activity Avoid heavy lifting Bathing Restrictions: Shower FOLLOW UP/APPOINTMENTS Follow-up Plan Please take your medications as prescribed, please follow-up with your doctors in the clinic in the next 5-7 days. MARLIN SANTIAGO Apr 05, 2017 14:10
[2017-04-05] MEDS ORDERED: ONDA4TAB8 PO (14:13)
--- NOTE | 2017-04-05 14:17 | DS ---
Date/Time of Note Date/Time of Note DATE: 04/05/17 TIME: 14:13 Discharge Summary Admission/Discharge Info Admit Date/Time Apr 02, 2017 at 19:05 Discharge Date/Time Discharge Diagnosis 1. Epigastric pain secondary to duodenitis and pancreatitis- improving . CT scan abdomen shows "thickening of the yung of the duodenum with mild adjacent fat stranding, concerning for duodenitis. 2. Left breast carcinoma, diagnosed 4 months ago: On chemo. Patient awaiting surgical intervention 3. History of hypertension 4. Hypokalemia -repleted Patient Condition: Stable Hospital Course 66-year-old female with a history of hypertension and left breast carcinoma on chemo who presented to the ER complaining of abdominal pain, nausea and vomiting. She said that she was diagnosed with left breast cancer 4 months ago. She was started on chemo last month, last chemo a week ago. She said that ever since she started the chemo, she has been having diffuse abdominal pain, nausea, nonbloody nonbilious emesis as well as watery yellowish nonbloody diarrhea. Denied chest pain, shortness of breath, fever/chills, headache. Patient is currently awaiting a surgical intervention on the left breast. When she presented to the ER, initial heart rate was 107 otherwise rest of vitals are stable. Labs showed a WBC of 3.6, potassium of 3, initial lactate 2.2. CT abdomen/pelvis showed duodenitis and possible pancreatitis. So patient was admitted to medical surgical floor. Patient was given antiemetics and initially made n.p.o. for first 24 hours, then cautiously started on liquid diet and then soft diet. Over the course of her hospital stay patient's abdominal pain symptoms improved. Her lipase was in the normal range. She was able to ambulate, tolerated p.o. diet. She had some low potassium magnesium levels which were repleted, because the patient is clinically improved today she will be discharged home today improved condition. She will be given prescription for antiemetics and see below for full list of discharge medications. Home Meds Active Scripts Ondansetron Hcl* (Zofran*) 4 Mg Tablet, 4 MG PO Q6H Y for NAUSEA AND OR VOMITING , #30 TAB Prov:MARLIN SANTIAGO 04/05/17 Reported Medications Loratadine* (Claritin*) 10 Mg Tablet, 10 MG PO DAILY, TAB 01/03/17 Pantoprazole* (Protonix*) 40 Mg Tablet.dr, 40 MG PO DAILY, TAB 01/03/17 Clonidine Hcl* (Clonidine Hcl*) 0.1 Mg Tab, 0.1 MG PO Q6 Y for ELEVATED BLOOD PRESSURE, TAB 01/03/17 Metoprolol Tartrate* (Lopressor*) 50 Mg Tab, 50 MG PO BID, #60 TAB 01/03/17 Discontinued Reported Medications Ciprofloxacin Hcl* (Ciprofloxacin Hcl*) 500 Mg Tablet, 500 MG PO BID, #14 TAB 01/03/17 Follow-up Plan Please take your medications as prescribed, please follow-up with your doctors in the clinic in the next 5-7 days. Primary Care Provider Not On Staff Doctor Time spent on discharge: > 30 minutes Pending Labs Laboratory Tests Test 04/05/17 04:41 04/05/17 04:42 White Blood Count 5.210^3/ul (4.8-10.8) Red Blood Count 3.7410^6/ul (4.20-5.40) Hemoglobin 10.5g/dl (12.0-16.0) Hematocrit 31.4% (37.0-47.0) Mean Corpuscular Volume 84.0fl (82.0-101.0) Mean Corpuscular Hemoglobin 28.1pg (29.0-33.0) Mean Corpuscular Hemoglobin Concent 33.4g/dl (32.0-37.0) Red Cell Distribution Width 14.9% (11.5-14.5) Platelet Count 24247^3/UL (140-415) Mean Platelet Volume 9.1fl (7.4-10.4) Neutrophils % 44.3% (39.0-77.0) Lymphocytes % 33.9% (15.0-51.0) Monocytes % 18.7% (0.0-11.0) Eosinophils % 0.0% (0.0-7.0) Basophils % 0.4% (0.0-2.0) Nucleated Red Blood Cells % 0.0/100WBC (0.0-0.0) Neutrophils # 2.310^3/ul (1.6-7.5) Lymphocytes # 1.810^3/ul (0.8-2.9) Monocytes # 1.010^3/ul (0.3-0.9) Eosinophils # 0.010^3/ul (0.0-0.5) Basophils # 0.010^3/ul (0.0-0.1) Nucleated Red Blood Cells # 0.010^3/ul (0.0-0.0) Sodium Level 140mmol/L (135-144) Potassium Level 2.9mmol/L (3.5-5.1) Chloride Level 103mmol/L (97-110) Carbon Dioxide Level 29mmol/L (21-31) Anion Gap 11 (8-16) Blood Urea Nitrogen 3mg/dl (7-20) Creatinine 0.74mg/dl (0.44-1.00) Glucose Level 116mg/dl (70-220) Calcium Level 8.2mg/dl (8.4-10.2) Phosphorus Level 2.9mg/dl (2.5-4.9) Magnesium Level 1.4mg/dl (1.7-2.5) Albumin 2.9g/dl (3.3-4.9) Microbiology Date/Time Source Procedure Growth Status 04/05/17 04:00 Feces Clostridium difficile Toxin Assay - Final Complete MARLIN SANTIAGO Apr 05, 2017 14:17
[2017-04-05] MEDS ORDERED: MAGNESIUM SULFATE 2 GM/50 ML 50 ML IVPB ONE (14:30)
== END 2017-04-05 19:05 | disposition home or self-care (01) | DRG 391 ==
LOC: E/R 11:21 → MS1 19:05 → OBSVTOIN 04-05 13:24
PROVIDERS: ADMIT Internal Medicine; ATTEND Internal Medicine
DX: K29.80 Duodenitis without bleeding (principal); K85.90 Acute pancreatitis without necrosis or infection, unspecified; C50.912 Malignant neoplasm of unspecified site of left female breast; I10 Essential (primary) hypertension; Z79.899 Other long term (current) drug therapy; E87.6 Hypokalemia
CPT/HCPCS: 36415; 71010; 74176; 80053; 80069; 81003; 83605; 83690; 83735; 84100; 84484; 85025; 85610; 85730; 87040; 87075; 87086; 93005; 96374; 96375; 96376; G0378; J0692; J2270; J2405; J3475; J3480; J7030; J7070

== ENCOUNTER 2017-06-14 12:01 | Emergency (ER) | END 2017-06-14 15:05 | disposition home or self-care (01) ==